=== PATIENT | male | born 2000 | race Two or more races ===

== ENCOUNTER 2020-05-11 11:25 | Emergency (ER) | payer OTHER ==
[~2020-05-11] VITALS: Ht 185.4 cm; Wt 141.3 kg
[2020-05-11 11:40] VITALS: BP 135/57
[2020-05-11] MEDS ORDERED: NAPR-514 PO (12:32)
[2020-05-11] MEDS ORDERED: CYCL-331 PO (12:32)
--- NOTE | 2020-05-11 12:32 | PHYS DOC ---
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 Patient denies any saddle anesthesia or loss of bowel/bladder control. He reports that the pain increases with movement and deep breath. Patient denies any numbness, tingling, or weakness of his lower extremities. He denies any fever, cough, shortness of breath, or neck pain. Patient states that the pain radiates upward to his upper back when he looks down. Currently rates the pain a 6 out of 10 on the pain scale, he denies any alleviating factors, the pain is worse with palpation and movement. Review of Systems: Review of Systems: Complete ROS is negative unless otherwise noted in HPI. Allergies: Allergies: Allergies Coded Allergies Type Severity Reaction Last Updated Verified diphenhydramine Allergy Unknown 05/11/20 Yes Physical Exam: PE: See Above Constitutional: Well developed, well nourished, no acute distress, non-toxic appearance, obese. [] HENT: Normocephalic, atraumatic, bilateral external ears normal, nose normal. [] Eyes: PERRLA, EOMI, conjunctiva normal, no discharge. [] Neck: Normal range of motion, no stridor. [] Cardiovascular:Heart rate regular rhythm Lungs & Thorax: Respirations even and unlabored, no retractions, no respiratory distress Back: No bony tenderness, left thoracic paraspinal tenderness to palpation, no step-off, no obvious deformity Skin: Warm, dry, no erythema, no rash. [] Extremities: No cyanosis, ROM intact, no edema. [] Neurologic: Alert and oriented X 3, no focal deficits noted. [] Psychologic: Affect normal, judgement normal, mood normal. [] Current Patient Data: Vital Signs: Vital Signs Date Time Temp Pulse Resp B/P (MAP) Pulse Ox O2 Delivery O2 Flow Rate FiO2 05/11/20 11:40 97.7 59 16 135/57 (83) Room Air 98.0 EKG: EKG: [] Radiology/Procedures: Radiology/Procedures: [] Heart Score: Risk Factors: Risk Factors: DM, Current or recent (<one month) smoker, HTN, HLP, family history of CAD, obesity. Risk Scores: Score 0 - 3: 2.5% MACE over next 6 weeks - Discharge Home Score 4 - 6: 20.3% MACE over next 6 weeks - Admit for Clinical Observation Score 7 - 10: 72.7% MACE over next 6 weeks - Early Invasive Strategies Course & Med Decision Making: Course & Med Decision Making Pertinent Labs and Imaging studies reviewed. (See chart for details) [] Ted Disclaimer: Ted Disclaimer: This electronic medical record was generated, in whole or in part, using a voice recognition dictation system. Departure Departure: Impression: Primary Impression: Strain of thoracic back region Additional Impression: Left paraspinal back pain Disposition: 01 DC HOME SELF CARE/HOMELESS Condition: STABLE Referrals: PCP,NO (PCP) Patient Instructions: Back Exercises, [id number], Back Injury Prevention, [id number], Back Pain, Adult, [id number] Additional Instructions: Fill the prescription(s) and use as directed. Apply ice to sore areas as needed for comfort for the first 48 hours then you may apply ice or heat as needed for comfort. Activity as tolerated. Follow up with your primary care doctor this w [place] if symptoms persist, return to the ER if symptoms worsen. Scripts Naproxen (NAPROXEN) 500 Mg Tablet 1 TAB PO BID for pain for 10 Days, #20 TAB 0 Refills Prov: SHARYN ONEIL APRN 05/11/20 Cyclobenzaprine Hcl (CYCLOBENZAPRINE HCL) 10 Mg Tablet 1 TAB PO TID PRN for PAIN for 10 Days, #30 TAB 0 Refills Prov: SHARYN ONEIL RN BABY 05/11/20 SHARYN ONEIL APRN May 11, 2020 12:32
== END 2020-05-11 12:40 | disposition home or self-care (01) ==
LOC: ER 11:25
DX: S29.012A Strain of muscle and tendon of back wall of thorax, initial encounter (principal); Z88.8 Allergy status to other drugs, medicaments and biological substances; X50.9XXA Other and unspecified overexertion or strenuous movements or postures, initial encounter; Y93.89 Activity, other specified; Y92.89 Other specified places as the place of occurrence of the external cause; Y99.8 Other external cause status
CPT/HCPCS: 99283